=== PATIENT | male | born 1965 | race Two or more races ===

== ENCOUNTER 2021-09-17 06:11 | Day surgery (SDC) | payer OTHER ==
[~2021-09-17] VITALS: Ht 185.4 cm; Wt 88.5 kg
[2021-09-17] MEDS ORDERED: PERCOCET 5-3251 EACH PO (08:17)
== END 2021-09-17 12:25 | disposition home or self-care (01) ==
LOC: CIR.AMB 06:11
PROVIDERS: ATTEND Surgery
DX: K64.2 Third degree hemorrhoids (principal); K62.89 Other specified diseases of anus and rectum; Z20.822 Contact with and (suspected) exposure to COVID-19

== ENCOUNTER 2021-10-07 20:56 | Inpatient (IN) | payer OTHER ==
[~2021-10-07] VITALS: Ht 175.3 cm; Wt 90.7 kg
[~2021-10-07 20:56] MED LIST: PERCOCET 5-3251 EACH PO
[2021-10-11] MEDS ORDERED: INTEGRA PLUS C1 EACH PO (12:18)
[2021-10-11] MEDS ORDERED: PERCOCET 5-3251 EACH PO (12:18)
== END 2021-10-11 14:31 | disposition home or self-care (01) | DRG 379 ==
LOC: ER 20:56 → SEC-K 21:11 → O/R 21:11 → SURG 10-08 12:18
PROVIDERS: ADMIT Surgery; ATTEND Surgery
PROC: 30233N1 Transfusion of Nonautologous Red Blood Cells into Peripheral Vein, Percutaneous Approach (ICD-10-PCS; 2021-10-07)
PROC: 0W3P8ZZ Control Bleeding in Gastrointestinal Tract, Via Natural or Artificial Opening Endoscopic (ICD-10-PCS; principal; 2021-10-07 22:00)
DX: K62.5 Hemorrhage of anus and rectum (principal); D64.9 Anemia, unspecified; Z20.822 Contact with and (suspected) exposure to COVID-19; Z98.890 Other specified postprocedural states